=== PATIENT | male | born 1995 | race Caucasian/White ===

== ENCOUNTER 2020-09-23 15:21 | Observation (INO) | payer BC ==
[~2020-09-23] VITALS: Ht 195.6 cm; Wt 93.0 kg
[2020-09-23 16:31] LABS: HEMOGLOBIN 11.6 gm/dl (14.0-17.5); RED BLOOD COUNT 5.91 M/UL (4.20-5.50); WHITE BLOOD COUNT 14.2 K/UL (4.5-11.0)
[2020-09-23 16:55] LABS: BUN/CREATININE RATIO 12 (0-10)
[2020-09-23] MEDS ORDERED: CLARITIN-D 241 EACH PO (21:33)
[2020-09-23] MEDS ORDERED: FLONASE 0.05% N16 GM (21:34)
--- NOTE | 2020-09-24 05:20 | NUR ---
IS GIVEN TO PATIENT, EDUCATED ON USE AND REPITITION 10X HOUR. RETURN DEMONSTRATION OF PATIENT EXCELLENT 4000 LEVEL.
[2020-09-24] MEDS ORDERED: HYDROCODON-ACE1 EAC2 PO (11:41)
== END 2020-09-24 17:15 | disposition home or self-care (01) ==
LOC: ER1 15:21 → CDU 18:41 → M/S 18:41
PROVIDERS: Student in an Organized Health Care Education/Training Program; ADMIT Surgery
PROC: 0DTJ4ZZ Resection of Appendix, Percutaneous Endoscopic Approach (ICD-10-PCS; principal; 2020-09-24 08:05)
DX: K35.80 Unspecified acute appendicitis (principal); Z20.822 Contact with and (suspected) exposure to COVID-19; Z79.51 Long term (current) use of inhaled steroids; Z79.899 Other long term (current) drug therapy; Z88.5 Allergy status to narcotic agent
CPT/HCPCS: 80053; 81001; 82550; 82553; 83605; 83690; 85025; 96374; 96375; 96376; 99285; G0378; J0690; J1100; J1170; J1200; J1885; J2001; J2250; J2270; J2405; J2543; J2704; J2710; J3010; J3480; J7030; J7120; Q9967; U0002